=== PATIENT | female | born 1960 | race Caucasian/White ===

== ENCOUNTER 2017-08-20 10:10 | Emergency (ER) | payer OTHER ==
[2017-08-20 11:15] VITALS: BP 122/79
--- NOTE | 2017-08-20 11:32 | UC ---
Throat Pain/Nasal Warner HPI - HPI Summary HPI Summary: chest congestion x 1 day productive cough , nasal congestion , pnd, no fever, no chills , no sob - History of Current Complaint Chief Complaint: UCRespiratory Stated Complaint: CONGESTION COUGH RUNNY NOSE HEADACHE Time Seen by Provider: 08/20/17 11:21 Hx Obtained From: Patient Hx Last Menstrual Period: n/a ?: No Onset/Duration: Gradual Onset, Lasting Days - 1, Still Present Severity: Moderate Cough: Nonproductive Associated Signs & Symptoms: Positive: Nasal Discharge. Negative: Wheezing, Sinus Discomfort, Fever, Rash - Allergies/Home Medications Allergies/Adverse Reactions: Allergies Allergy/AdvReac Type Severity Reaction Status Date / Time No Known Allergies Allergy Verified 08/20/17 11:05 Home Medications: Home Medications Levothyroxine TAB* [Synthroid TAB*] 150 mcg PO DAILY 08/20/17 [History Confirmed 08/20/17] buPROPion TAB* [Wellbutrin TAB*] 150 mg PO BID 08/20/17 [History Confirmed 08/20] guaiFENesin ER TAB [Mucinex*] 600 mg PO BID PRN 08/20/17 [History Confirmed 01/01] PMH/Surg Hx/FS Hx/Imm Hx Endocrine History: Hypothyroidism Psychological History: Depression Cancer History: Breast Cancer - Surgical History Surgical History: Yes Surgery Procedure, Year, and Place: appendectomy. hysterectomy. LUMPECTOMY LEFT BREAST 2007. MOLE REMOVED FROM FACE 06/01. 3 C SECTIONS - Family History Known Family History: Positive: Hypertension - Social History Alcohol Use: None Substance Use Type: None Smoking Status (MU): Never Smoked Tobacco Household Exposure Type: Cigarettes - Immunization History Most Recent Influenza Vaccination: FALL 2016 Most Recent Tetanus Shot: 2010 Review of Systems Constitutional: Negative ENT: Nasal Discharge Respiratory: Cough Cardiovascular: Negative Is Patient Immunocompromised?: No All Other Systems Reviewed And Are Negative: Yes Physical Exam Triage Information Reviewed: Yes Appearance: Well-Appearing, No Pain Distress, Well-Nourished Vital Signs: Initial Vital Signs Temp 98.4 F 08/20/17 11:07 Pulse 89 08/20/17 11:07 Resp 16 08/20/17 11:07 BP 122/79 08/20/17 11:07 Pulse Ox 97 08/20/17 11:07 Vital Signs Reviewed: Yes Eyes: Positive: Conjunctiva Clear ENT: Positive: Normal ENT inspection, Hearing grossly normal, Pharynx normal, Nasal congestion, Nasal drainage, TMs normal Neck: Positive: Supple, Nontender, No Lymphadenopathy Respiratory: Positive: Chest non-tender, Lungs clear, Normal breath sounds Cardiovascular: Positive: RRR, No Murmur, Pulses Normal Skin Exam: Normal Throat Pain/Nasal Course/Dx - Differential Dx/Diagnosis Provider Diagnoses: uri Discharge - Discharge Plan Condition: Stable Disposition: HOME Patient Education Materials: Upper Respiratory Infection (ED) Referrals: Parveen Ulloa MD [Primary Care Provider] - If Needed Additional Instructions: viral illness, no need for antibiotics
== END 2017-08-20 11:31 | disposition home or self-care (01) ==
LOC: UCCORT 10:10
DX: J06.9 Acute upper respiratory infection, unspecified (principal); E03.9 Hypothyroidism, unspecified; F32.9 Major depressive disorder, single episode, unspecified; Z85.3 Personal history of malignant neoplasm of breast; Z77.22 Contact with and (suspected) exposure to environmental tobacco smoke (acute) (chronic)
CPT/HCPCS: 99211; G0463

== ENCOUNTER 2017-10-08 19:10 | Emergency (ER) | payer OTHER ==
[2017-10-08 20:36] VITALS: BP 113/66
[2017-10-08] MEDS ORDERED: predniSONE TAB* 20 MG PO ONE (21:34)
[2017-10-08] MEDS ORDERED: diPHENhydraMINE PO* 25 MG PO ONE (21:34)
--- NOTE | 2017-10-08 21:41 | UC ---
Skin Complaint HPI - HPI Summary HPI Summary: Pt presents to with report of hives across chest abd back and upper ext since yesterday. Pt denies any new products, foods environment. No facial edema , intrasoral swelling. no difficulty with breathing. No sob. No OTC meds taken.. in futher talking with pt, she became tearful. Pt's daughter in [place] 3 years ago. Pt left the [facility] and moved to [place] where she was getting mental health care. Pt has moved back to the area and has an appt with PCP on Sunday morning. Pt states she previously used Klonopin and other antidepressants. Pt states her Rx completed 10 days ago. Pt denies SI/HI stating has other children to care for. Pt here with SO. Pt states he is supportive. Pt denies n/v. No cp, sob, abd pain. pt's medications reviewed this visit - History of Current Complaint Chief Complaint: UCSkin Time Seen by Provider: 10/08/17 21:17 Stated Complaint: SKIN COMPLAINT Hx Obtained From: Patient Hx Last Menstrual Period: n/a ?: No Onset/Duration: Gradual Onset Timing: Constant Onset Severity: Mild Current Severity: Moderate Location: Diffuse, Generalized Character: Pruritus, Hives, Raised Aggravating Factor(s): Showering Associated Signs & Symptoms: Positive: Negative - Allergy/Home Medications Allergies/Adverse Reactions: Allergies Allergy/AdvReac Type Severity Reaction Status Date / Time No Known Allergies Allergy Verified 10/08/17 20:36 Review of Systems Constitutional: Negative Skin: Rash, Other - hives All Other Systems Reviewed And Are Negative: Yes PMH/Surg Hx/FS Hx/Imm Hx Previously Healthy: Yes Psychological History: Anxiety, Depression - Surgical History Surgical History: Yes Surgery Procedure, Year, and Place: appendectomy. hysterectomy. LUMPECTOMY LEFT BREAST 2007. MOLE REMOVED FROM FACE 06/01. 3 C SECTIONS - Family History Known Family History: Positive: Hypertension - Social History Occupation: Unemployed Lives: With Family Alcohol Use: None Substance Use Type: None Smoking Status (MU): Never Smoked Tobacco Household Exposure Type: Cigarettes - Immunization History Most Recent Influenza Vaccination: FALL 2016 Most Recent Tetanus Shot: 2010 Physical Exam Triage Information Reviewed: Yes Appearance: No Pain Distress, Well-Nourished, Other: - tearful with conversation of decreased daughter Vital Signs: Initial Vital Signs Temp 98.5 F 10/08/17 20:31 Pulse 93 10/08/17 20:31 Resp 14 10/08/17 20:31 BP 113/66 10/08/17 20:31 Pulse Ox 96 10/08/17 20:31 Eye Exam: Normal Eyes: Positive: Conjunctiva Clear ENT Exam: Normal ENT: Positive: Normal ENT inspection, Hearing grossly normal, Pharynx normal, TMs normal Dental Exam: Normal Neck exam: Normal Neck: Positive: Supple, Nontender, No Lymphadenopathy Respiratory Exam: Normal Respiratory: Positive: Chest non-tender, Lungs clear, Normal breath sounds, No respiratory distress, No accessory muscle use Cardiovascular Exam: Normal Cardiovascular: Positive: RRR, No Murmur, Pulses Normal Abdominal Exam: Normal Abdomen Description: Positive: Nontender, No Organomegaly, Soft Bowel Sounds: Positive: Present Musculoskeletal Exam: Normal Musculoskeletal: Positive: Strength Intact Neurological Exam: Normal Neurological: Positive: Alert Psychological: Positive: Other: - pt became tearful and struggled discussing the of her daughter. Able to appropriate console. Skin: Positive: Other - Pt with hives and pruritis to chest, abd, upper ext R>L and midback Course/Dx - Course Course Of Treatment: Pt presents with hives to chest, abd and back. pruturic, diffuse. Pt without intraoral edema or lesions. Pt also with emotional distres discussing her daughter. Pt currently out of her meds since moving back to [facility]. Pt with PCP appt on Sun. Pt with good support at home. No si/hi. d/w pt at [facility]- pt with [employer] and contract for [employer]. Will Rx prn klonopin. 911 or return to ED. for rash - prednisone, benadryl - cautioned pt klonopin can't be taken with benadryl avoid heat, nsaids. Pt reprts agreement and comfort with plan of care - Diagnoses Provider Diagnoses: hives. medication refill Discharge - Discharge Plan Condition: Stable Disposition: HOME Prescriptions: clonazePAM TAB(*) [Klonopin TAB(*)] 0.5 mg PO BID #4 tab MDD 2 predniSONE TAB* [Deltasone TAB*] 20 mg PO DAILY #9 tab Patient Education Materials: Urticaria (ED), Anxiety (ED) Referrals: Parveen Ulloa MD [Primary Care Provider] - Additional Instructions: - Stay well hydrated. Drink plenty of non-alcoholic, non-caffinated beverages - Take prednisone once daily as prescribed until gone - Okay to take bendaryl 25mg every 6 hours for itching. this may cause drowsiness - do not drive, operate machinery or drink alcohol while taking this medication - Avoid getting over heated - hot baths or exercise for 2 days - you have also been given a prescription for clonazepam- do NOT Take this medication if you have taken benadryl for at least 8 hours - Keep your appointment with your primary care provider on Sunday at 10: 30am. COntact your doctor, go to the emergency department, or call 911 with ANY questions or concerns
== END 2017-10-08 21:48 | disposition home or self-care (01) ==
LOC: UCCORT 19:10
DX: L50.9 Urticaria, unspecified (principal); F41.9 Anxiety disorder, unspecified; F32.9 Major depressive disorder, single episode, unspecified; Z76.0 Encounter for issue of repeat prescription; Z90.89 Acquired absence of other organs; Z90.710 Acquired absence of both cervix and uterus; Z77.22 Contact with and (suspected) exposure to environmental tobacco smoke (acute) (chronic)
CPT/HCPCS: 99212; A9270-GY; G0463; J7512

== ENCOUNTER 2018-07-16 19:45 | Emergency (ER) | payer OTHER ==
[2018-07-16 20:36] VITALS: BP 120/64
--- NOTE | 2018-07-16 21:15 | UC ---
Lower Extremity/Ankle HPI - HPI Summary HPI Summary: The patient is a 57-year-old female that presents here for evaluation of a right foot injury. Injury occurred last night. He hit the dorsum of her foot on a nightstand. She is able to bear weight but with a limp. - History of Current Complaint Chief Complaint: UCLowerExtremity Stated Complaint: RIGHT FOOT PAIN Time Seen by Provider: 07/16/18 21:03 Hx Obtained From: Patient Hx Last Menstrual Period: n/a Onset/Duration: Sudden Onset, Lasting Hours Severity Initially: Moderate Severity Currently: Mild Pain Intensity: 4 Pain Scale Used: 0-10 Numeric Aggravating Factor(s): Standing, Ambulation Alleviating Factor(s): Rest Able to Bear Weight: Yes Feet (Multiple View): 1 - tender/swollen 2 - tender/swollen - Allergies/Home Medications Allergies/Adverse Reactions: Allergies Allergy/AdvReac Type Severity Reaction Status Date / Time No Known Allergies Allergy Verified 10/08/17 20:36 Home Medications: Home Medications Pantoprazole TAB (NF) [Protonix TAB (NF)] 20 mg PO DAILY PRN 07/16/18 [History Confirmed 07/16/18] Ranitidine TAB (NF) [Zantac TAB (NF)] 150 mg PO TID 07/16/18 [History Confirmed 07/16/18] PMH/Surg Hx/FS Hx/Imm Hx Endocrine History: Hypothyroidism Psychological History: Anxiety Cancer History: Breast Cancer - Surgical History Surgical History: Yes Surgery Procedure, Year, and Place: appendectomy. hysterectomy. LUMPECTOMY LEFT BREAST 2007. MOLE REMOVED FROM FACE 06/01. 3 C SECTIONS - Family History Known Family History: Positive: Hypertension - Social History Alcohol Use: None Substance Use Type: None Smoking Status (MU): Never Smoked Tobacco Household Exposure Type: Cigarettes - Immunization History Most Recent Influenza Vaccination: FALL 2016 Most Recent Tetanus Shot: 2010 Review of Systems Constitutional: Negative Skin: Negative Eyes: Negative ENT: Negative Respiratory: Negative Cardiovascular: Negative Gastrointestinal: Negative Genitourinary: Negative Motor: Negative Neurovascular: Negative Musculoskeletal: Arthralgia Neurological: Negative Psychological: Negative All Other Systems Reviewed And Are Negative: Yes Physical Exam Triage Information Reviewed: Yes Appearance: Well-Appearing, No Pain Distress, Well-Nourished Vital Signs: Initial Vital Signs Temp 98.4 F 07/16/18 20:32 Pulse 87 07/16/18 20:32 Resp 15 07/16/18 20:32 BP 120/64 07/16/18 20:32 Pulse Ox 97 07/16/18 20:32 Vital Signs Reviewed: Yes Eyes: Positive: Conjunctiva Clear ENT: Positive: Hearing grossly normal. Negative: Nasal congestion, Nasal drainage, Trismus, Muffled voice, Hoarse voice Neck: Positive: Supple Respiratory: Positive: Lungs clear, Normal breath sounds, No respiratory distress, No accessory muscle use Cardiovascular: Positive: RRR Musculoskeletal: Positive: ROM Intact, Edema @ Neurological: Positive: Alert Psychological Exam: Normal Diagnostics - Radiology No standard instances Radiology Interpretation Completed By: ED Physician Summary of Radiographic Findings: no fx noted Lower Extremity Course/Dx - Differential Dx/Diagnosis Provider Diagnoses: right foot contusion Discharge - Sign-Out/Discharge Documenting (check all that apply): Patient Departure All imaging exams completed and their final reports reviewed: No - Discharge Plan Condition: Stable Disposition: HOME Patient Education Materials: Contusion in Adults (ED) Referrals: Parveen Ulloa MD [Primary Care Provider] - 1 Week (if not better) Additional Instructions: rest elevate ice official xr reading pending post op shoe - Billing Disposition and Condition Condition: STABLE Disposition: Home
--- NOTE | 2018-07-17 08:10 | RAD ---
HISTORY: injury, tender midfoot and 2nd toe COMPARISONS: None VIEWS: 3 , Frontal, lateral, and oblique views of the right foot FINDINGS: BONE DENSITY: Normal. BONES: There is no displaced fracture. JOINTS: There is no arthropathy. ALIGNMENT: There is no dislocation. SOFT TISSUES: Unremarkable. OTHER FINDINGS: None. IMPRESSION: NO ACUTE OSSEOUS INJURY. IF SYMPTOMS PERSIST, RECOMMEND REPEAT IMAGING. R1NF
--- NOTE | 2018-07-17 08:20 | UC ---
- Progress Note Progress Note: Patient Name: CHRISTO LOPEZ Medical Record#: [id number] Ordering Physician: Indra Contreras MD Acct.#: [id number] : 1960 Age: 57 Sex: F [place] [facility] [place]: 07/16/182105 ADM Status: [facility] ER Order Information: FOOT RIGHT 3+ VWS Accession Number: [id number] CPT: 08360 HISTORY: injury, tender midfoot and 2nd toe COMPARISONS: None VIEWS: 3 , Frontal, lateral, and oblique views of the right foot FINDINGS: BONE DENSITY: Normal. BONES: There is no displaced fracture. JOINTS: There is no arthropathy. ALIGNMENT: There is no dislocation. SOFT TISSUES: Unremarkable. OTHER FINDINGS: None. IMPRESSION: NO ACUTE OSSEOUS INJURY. IF SYMPTOMS PERSIST, RECOMMEND REPEAT IMAGING. R1NF <Electronically signed by Ethan Zayas MD in OV> 07/17/18805 Dictated By: Ethan Zayas MD Dictated Date/Time: 07/17/18805 Transcribed Date/Time: 07/17/18804 Copy to: CC:Parveen Ulloa MD; Indra Contreras MD Imaging - [facility] [address] [place] [address] ph ([phone]) ph ([phone]) ph ([phone]) This report is only to be considered final once signed by the Provider(s) as displayed in the "<Electronically Signed by >" field (s). Absence of a signature indicates the report is in a draft status and still needs to be finalized. In the event this document was created by someone other than the signing Provider, the individual initiating the document will be listed in the "Entered by:" or "Dictated by:" abernathy. 1 of 1 Discharge - Sign-Out/Discharge Documenting (check all that apply): Post-Discharge Follow Up All imaging exams completed and their final reports reviewed: Yes - Discharge Plan Condition: Stable Disposition: HOME Patient Education Materials: Contusion in Adults (ED) Referrals: Parveen Ulloa MD [Primary Care Provider] - 1 Week (if not better) Additional Instructions: rest elevate ice official xr reading pending post op shoe - Billing Disposition and Condition Condition: STABLE Disposition: Home
== END 2018-07-16 21:28 | disposition home or self-care (01) ==
LOC: UCCORT 19:45
DX: S90.31XA Contusion of right foot, initial encounter (principal); W22.8XXA Striking against or struck by other objects, initial encounter; Y92.9 Unspecified place or not applicable; E03.9 Hypothyroidism, unspecified; Z85.3 Personal history of malignant neoplasm of breast
CPT/HCPCS: 99212; G0463

== ENCOUNTER 2018-10-25 16:21 | Emergency (ER) | payer OTHER ==
[2018-10-25 17:00] VITALS: BP 146/83
[2018-10-25 17:22] LABS: Influenza A Molecular POSITIVE (Negative)
--- NOTE | 2018-10-25 17:35 | ED ---
Influenza-Like Illness - HPI Summary HPI Summary: 58 yr old female with the complaint of runny nose, cough, fever, chills myalgias for about 2 days. She had a cough last month that got better, but now something new has come on. No SOB. Symptoms are moderate. - History of Current Complaint Chief Complaint: UCGeneralIllness Time Seen by Provider: 10/25/18 17:17 - Allergy/Home Medications Allergies/Adverse Reactions: Allergies Allergy/AdvReac Type Severity Reaction Status Date / Time No Known Allergies Allergy Verified 10/25/18 17:00 Home Medications: Home Medications Estradiol PATCH 0.05MG/DAY* [Climara PATCH 0.05 MG/DAY*] 0.05 mg .SEE ORDER 05/05 [History] Nitrofurantoin Monohyd/M-Cryst [Macrobid 100 mg Capsule] 100 mg PO BID 10/25/18 [History Confirmed 10/25/18] PMH/Surg Hx/FS Hx/Imm Hx Endocrine/Hematology History: Reports: Hx Diabetes - hypothyroidism, Hx Thyroid Disease - hypo Cardiovascular History: Denies: Hx Hypercholesterolemia, Hx Hypertension, Hx Pacemaker/ICD, Hx Peripheral Vascular Disease History: Denies: Hx Renal Disease Musculoskeletal History: Denies: Hx Arthritis, Hx Osteoporosis, Hx Scoliosis Sensory History: Denies: Hx Cataracts, Hx Contacts or Glasses, Hx Glaucoma, Hx Hearing Aid Opthamlomology History: Denies: Hx Cataracts, Hx Contacts or Glasses, Hx Glaucoma Neurological History: Denies: Hx Headaches, Hx Seizures, Hx Transient Ischemic Attacks (TIA), Other Neuro Impairments/Disorders Psychiatric History: Reports: Hx Panic Disorder - ANXIETY Denies: Hx Anxiety, Hx Depression - Cancer History Cancer Type, Location and Year: Breast cancer age 30/lumpectomy--chemo and tamoxifen x5 years. MOLE 06/01 Hx Chemotherapy: Yes Hx Radiation Therapy: No - Surgical History Surgery Procedure, Year, and Place: appendectomy. hysterectomy. LUMPECTOMY LEFT BREAST 2007. MOLE REMOVED FROM FACE 06/01. 3 C SECTIONS Infectious Disease History: No Infectious Disease History: Reports: Hx Hepatitis - Hep A as a child Denies: Traveled Outside the [place] in Last 30 Days - Family History Known Family History: Positive: Hypertension - Social History Occupation: Disabled Alcohol Use: None Hx Substance Use: No Substance Use Type: Reports: None Hx Tobacco Use: No Smoking Status (MU): Never Smoked Tobacco Review of Systems Positive: Fever, Chills Positive: Sore Throat, Nasal Discharge Positive: Cough All Other Systems Reviewed And Are Negative: Yes Physical Exam Triage Information Reviewed: Yes Vital Signs On Initial Exam: Initial Vitals Temp Pulse Resp BP Pulse Ox 99.3 F 111 20 146/83 98 10/25/18 16:57 10/25/18 16:57 10/25/18 16:57 10/25/18 16:57 10/25/18 16:57 Vital Signs Reviewed: Yes Appearance: Positive: Well-Appearing, No Pain Distress Skin: Positive: Warm, Skin Color Reflects Adequate Perfusion Head/Face: Positive: Normal Head/Face Inspection Eyes: Positive: EOMI ENT: Positive: Pharyngeal erythema, Nasal congestion, Nasal drainage, TMs normal Neck: Positive: Nontender Respiratory/Lung Sounds: Positive: Clear to Auscultation, Breath Sounds Present Cardiovascular: Positive: RRR. Negative: Murmur Abdomen Description: Positive: Nontender Musculoskeletal: Positive: Strength/ROM Intact Neurological: Positive: Sensory/Motor Intact, Alert, Oriented to Person Place, Time, CN Intact II-III, Normal Gait, Speech Normal Psychiatric: Positive: Normal - Combs Coma Scale Best Eye Response: 4 - Spontaneous Best Motor Response: 6 - Obeys Commands Best Verbal Response: 5 - Oriented Coma Scale Total: 15 Diagnostics - Vital Signs Vital Signs Temp Pulse Resp BP Pulse Ox 10/25/18 16:57 99.3 F 111 20 146/83 98 - Laboratory Lab Results: Lab Results 10/25/18 Range/Units 17:17 Influenza A (Rapid) Positive A (Negative) Lab Statement: Any lab studies that have been ordered have been reviewed, and results considered in the medical decision making process. Flu Symptom Course/Dx - Course Course Of Treatment: 58 yr old with influenza. DC home on tamiflu - Diagnoses Provider Diagnoses: Hypertension, Influenza Discharge - Sign-Out/Discharge Documenting (check all that apply): Patient Departure All imaging exams completed and their final reports reviewed: No Studies - Discharge Plan Condition: Good Disposition: HOME Prescriptions: Oseltamivir CAP* [Tamiflu CAP*] 75 mg PO BID #10 cap Patient Education Materials: Influenza (ED), Hypertension (ED) Referrals: Parveen Ulloa MD [Primary Care Provider] - 3 Days - Billing Disposition and Condition Condition: GOOD Disposition: Home
== END 2018-10-25 17:38 | disposition home or self-care (01) ==
LOC: UCCORT 16:21
DX: J11.1 Influenza due to unidentified influenza virus with other respiratory manifestations (principal); I10 Essential (primary) hypertension; E11.9 Type 2 diabetes mellitus without complications
CPT/HCPCS: 99212; G0463